=== PATIENT | female | born 2000 | race Caucasian/White ===

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

== ENCOUNTER 2020-05-27 15:12 | Emergency (ER) | payer OTHER ==
--- NOTE | 2020-05-27 16:15 | ED ---
General Adult HPI - General Chief complaint: Animal Bite Stated complaint: dog bite/face lac Time Seen by Provider: 05/27/20 16:02 Source: patient Mode of arrival: ambulatory Limitations: no limitations - History of Present Illness Initial comments: 19-year-old female presents to the emergency department with a laceration to the bridge of her nose from a dog bite approximately one hour prior to arrival. Bleeding controlled upon arrival; reports mild discomfort at the site of injury. Denies difficulty breathing through her nose or any other area of injury. Patient states the dog that bit her belongs to the mother of her boyfriend and is able to confirm that the dog's immunizations are up-to-date. Patient states she has unsure of when she last had a tetanus shot. Patient denies any headache, neck pain, back pain, chest pain, shortness of breath, dizziness, weakness, abdominal pain, nausea, vomiting, or difficulties with bowel movements or urination. - Related Data Home Medications Medication Instructions Recorded Confirmed Escitalopram Oxalate [Lexapro] 1 tab PO HS 08/09/16 11/09/16 Previous Rx's Medication Instructions Recorded Cephalexin [Keflex] 500 mg PO BID #14 cap 01/08/19 Phenazopyridine HCl [Pyridium] 100 mg PO TID #9 tab 01/08/19 Famotidine [Pepcid] 20 mg PO BID #40 tablet 02/09/19 Doxycycline [Vibramycin] 100 mg PO BID 1 Days #14 capsule 05/27/20 Allergies Allergy/AdvReac Type Severity Reaction Status Date / Time amoxicillin Allergy Rash/Hives Verified 05/27/20 15:33 Review of Systems ROS Statement: Those systems with pertinent positive or pertinent negative responses have been documented in the HPI. ROS Other: All systems not noted in ROS Statement are negative. Past Medical History Past Medical History: No Reported History Additional Past Medical History / Comment(s): MONO History of Any Multi-Drug Resistant Organisms: None Reported Past Surgical History: No Surgical Hx Reported Past Psychological History: Anxiety, Depression Smoking Status: Never smoker Past Alcohol Use History: None Reported Past Drug Use History: None Reported General Exam Limitations: no limitations (Well-developed, well-nourished female in no acute distress. Initial temperature 98.3F, pulse 80, respirations 18, blood pressure 132/83, pulse ox 99% on room air.) General appearance: alert, in no apparent distress Expanded Head exam: Present: laceration (4 cm stellate shaped laceration to the bridge of the nose) Respiratory exam: Present: normal lung sounds bilaterally. Absent: respiratory distress, wheezes, rales, rhonchi, stridor Cardiovascular Exam: Present: regular rate, normal rhythm, normal heart sounds. Absent: systolic murmur, diastolic murmur, rubs, gallop, clicks Neurological exam: Present: alert, oriented X3, CN II-XII intact Psychiatric exam: Present: normal affect, normal mood Skin exam: Present: warm, dry, intact, normal color. Absent: rash Course Vital Signs 05/27/20 05/27/20 15:29 16:30 Temperature 98.3 F 99.2 F Pulse Rate 80 76 Respiratory 18 19 Rate Blood Pressure 132/83 132/74 O2 Sat by Pulse 99 99 Oximetry Procedures - Laceration Laceration #1 Consent Obtained: verbal consent Indication: laceration Site: face Size (cm): 4 Description: stellate Depth: simple, single layer Anesthetic Used: lidocaine 1% Anesthesia Technique: local infiltration Amount (mls): 3 Pre-repair: wound explored, irrigated extensively Type of Sutures: nylon Size of Sutures: 6-0 Number of Sutures: 5 Technique: simple, interrupted Patient Tolerated Procedure: well Medical Decision Making - Medical Decision Making 19-year-old female presents to the emergency department for evaluation of 4 cm stellate laceration to the bridge of her nose, onset 1 hour prior to arrival. States injury was from a dog bite; animal is known to the patient was able to confirm that the dog's immunizations are up-to-date. Patient was unsure of the date of her last tetanus shot therefore one was administered while she was present in the department. Patient also received Motrin for mild discomfort. Discussed the need for thorough wound cleansing and antibiotic treatment due to the nature of the injury. Patient was agreeable and wound was anesthetized with 1% lidocaine, thoroughly irrigated, and five 6-0 nylon simple interrupted sutures were placed. Patient tolerated procedure very well. Bacitracin applied, wound care instructions reviewed at length. Patient instructed to have sutures removed in 3-5 days. Return parameters discussed in detail. Patient verbalizes understanding and agrees with this plan. Disposition Clinical Impression: Dog bite of nose Disposition: HOME SELF-CARE Instructions (If sedation given, give patient instructions): Animal Bite (ED) Additional Instructions: Keep clean and dry. Cleanse twice daily with warm water and antibacterial soap. Return to have stitches removed in 3-5 days. Follow up with her primary care physician for recheck in 1-2 days. Return to the department for any new, worsening, or concerning symptoms. Prescriptions: Doxycycline [Vibramycin] 100 mg PO BID 1 Days #14 capsule Is patient prescribed a controlled substance at d/c from ED?: No Referrals: Cara Monreal DO [Primary Care Provider] - 1-2 days Time of Disposition: 17:59
[2020-05-27] MEDS ORDERED: BACITRACIN OINT 1 EACH PACKET TOPICAL ONE (16:18)
[2020-05-27] MEDS ORDERED: IBUPROFEN 600 MG TAB PO STA (16:18)
[2020-05-27] MEDS ORDERED: LIDOCAINE 1% INJ 10MG/ML (20 ML MDV) SQ ONE (16:18)
[2020-05-27] MEDS ORDERED: DIPH,PERTUS(ACELL)TETVAC-LF 0.5 ML VIAL IM ONE (16:21)
[2020-05-27] MEDS ORDERED: DOXYCYCLINE 100 MG CAP PO STA (16:25)
[2020-05-27 18:22] VITALS: BP 124/82; PULSE 84; RESP 18; TEMP 98.7
== END 2020-05-27 18:02 | disposition home or self-care (01) ==
LOC: EC 15:12
DX: S01.21XA Laceration without foreign body of nose, initial encounter (principal); F41.9 Anxiety disorder, unspecified; F32.9 Major depressive disorder, single episode, unspecified; Z79.899 Other long term (current) drug therapy; Z88.0 Allergy status to penicillin; Z23 Encounter for immunization; W54.0XXA Bitten by dog, initial encounter
CPT/HCPCS: 90715; 99283; 12013; 90471; J2001

== ENCOUNTER 2022-04-01 16:33 | Emergency (ER) | payer OTHER ==
[2022-04-01 17:35] VITALS: BP 122/85; PULSE 88; RESP 16; TEMP 97.4
[2022-04-01] MEDS ORDERED: LIDOCAINE 1% INJ 10MG/ML (20 ML MDV) SQ ONE (18:15)
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
== END 2022-04-01 19:52 | disposition home or self-care (01) ==
LOC: EC 16:33
DX: S61.012A Laceration without foreign body of left thumb without damage to nail, initial encounter (principal); F41.9 Anxiety disorder, unspecified; F32.A Depression, unspecified; F12.90 Cannabis use, unspecified, uncomplicated; Z88.1 Allergy status to other antibiotic agents; W26.0XXA Contact with knife, initial encounter
CPT/HCPCS: 99283; 12002; J2001; 12001; 96374

== ENCOUNTER 2023-06-28 14:08 | Inpatient (IN) | payer OTHER ==
[2023-06-28 16:31] LABS: Basophils % (A) 0 %; Eosinophils # (A) 0.1 k/uL (0-0.7); Eosinophils % (A) 0 %; HCT 38.6 % (34.0-46.0); HGB 13.4 gm/dL (11.4-16.0); Lymphocytes # (A) 1.4 k/uL (1.0-4.8); Lymphocytes % (A) 9 %; MCH 27.6 pg (25.0-35.0); MCHC 34.8 g/dL (31.0-37.0); MCV 79.3 fL (80.0-100.0); Mean Platelet Volume 8.8; Monocytes # (A) 0.8 k/uL (0-1.0); Monocytes % (A) 5 %; Neutrophils # (A) 12.7 k/uL (1.3-7.7); Neutrophils % (A) 84 %; Platelet Count 144 k/uL (150-450); RBC 4.86 m/uL (3.80-5.40); RDW 13.8 % (11.5-15.5); WBC 15.1 k/uL (3.8-10.6)
[2023-06-28 16:49] LABS: Appearance,Urine Slightly Cloudy (Clear); Bacteria,Urine Moderate /hpf; Bilirubin,Urine Negative (Negative); Blood,Urine Moderate (Negative); Color,Urine Light Yellow; Glucose,Urine (UA) Negative (Negative); Ketones,Urine Negative (Negative); Leukocyte Esterase,Urine Negative (Negative); Nitrite,Urine Negative (Negative); Protein,Urine Negative (Negative); RBC,Urine <1 /hpf (0-5); Squamous Epithelial Cell,Urine <1 /hpf (0-4); Urobilinogen,Urine <2.0 mg/dL (<2.0); WBC,Urine 2 /hpf (0-5)
[2023-06-28 16:52] LABS: ALT 14 U/L (4-34); AST 21 U/L (14-36); African American GFR (CKD) >90 (>60 ml/min/1.73 sqM); Blood Urea Nitrogen 8 mg/dL (7-17); LDH 187 U/L (120-246); Non-African American GFR(CKD) >90 (>60 ml/min/1.73 sqM)
[2023-06-28 16:53] LABS: Creatinine,Urine Random 33.1 mg/dL; Protein/Creatinine Ratio,Urine 0.363
[2023-06-28] MEDS ORDERED: LIDOCAINE 0.5% (PF) 5 MG/ML (50 ML SDV) SQ PRN (17:10)
[2023-06-28] MEDS ORDERED: miSOPROStoL 200 MCG TAB PO PRN (17:10)
[2023-06-28] MEDS ORDERED: CARBOPROST TROMETHAMINE 250 MCG/ML 1 ML AMP IM PRN (17:10)
[2023-06-28] MEDS ORDERED: TERBUTALINE 1 MG/ML VIAL SQ PRN (17:10)
[2023-06-28] MEDS ORDERED: OXYTOCIN 10 UNIT/ML 1 ML VIAL IM PRN (17:10)
[2023-06-28] MEDS ORDERED: METHYLERGONOVINE 0.2 MG/ML 1 ML AMP IM PRN (17:10)
[2023-06-28] MEDS ORDERED: TRANEXAMIC 1,000 MG/100ML-NACL 1,000 MG in EMPTY BAG 1 BAG IV PRN (17:10)
[2023-06-28] MEDS ORDERED: OXYTOCIN 30 UNITS/500 ML NS 30 UNIT in SALINE 1 500ML.BAG IV SCH (17:15)
[2023-06-28] MEDS ORDERED: LACTATED RINGERS 1,000 ML IV SCH (17:15)
--- NOTE | 2023-06-28 21:00 | P.HPOB ---
History of Present Illness H&P Date: 06/28/23 Chief Complaint: Contractions Ms. Garrison is a 22 year old at 41 weeks and 1 day with EDC of 06/20/2023 (by LMP consistent with an 8 week US) who presents to labor and delivery with regular, painful uterine contractions. The has been complicated by mild bilateral ventriculomegaly found on the anatomy ultrasound. The patient had an ultrasound and consultation with Maternal Medicine who reassured the patient and discussed the good prognosis. The fetus measured in the 31%ile at 34 weeks. Obstetric history: 1 VTP work-up: blood type B positive, antibody screen negative, rubella immune, VDRL non-reactive, HBsAg negative, HIV negative, HCV Ab negative, gonorrhea negative, chlamydia negative, 1 hour GTT within normal limits, GBS negative. Patient declined TDap and flu shot. Past Medical History Past Medical History: No Reported History Additional Past Medical History / Comment(s): MONO History of Any Multi-Drug Resistant Organisms: None Reported Past Surgical History: No Surgical Hx Reported Past Anesthesia/Blood Transfusion Reactions: No Reported Reaction Past Psychological History: Anxiety, Depression Smoking Status: Never smoker Past Alcohol Use History: None Reported Past Drug Use History: Marijuana - Past Family History Mother Family Medical History: No Reported History Medications and Allergies Home Medications Medication Instructions Recorded Confirmed Type Vit No.179/Iron/Folic 1 each PO DAILY 06/28/23 06/28/23 History [ Tablet] Allergies Allergy/AdvReac Type Severity Reaction Status Date / Time amoxicillin Allergy Rash/Hives Verified 06/28/23 14:35 Exam Vital Signs Temp Pulse Resp BP Pulse Ox 06/28/23 17:30 97.1 F L 80 16 141/88 98 Intake and Output 06/28/23 06/28/23 06/28/23 06:59 14:59 22:59 Other: Weight 86.183 kg 86.183 kg Focused physical exam is performed. This is a healthy-appearing in no apparent distress. Breathing is non-labored. Abdomen is gravid and non-tender. Cervical exam is 5 cm, 90 effacement, -3 station. Extremeties non-tender and non-edematous. heart tones are Category I and tocometer is graphing contractions every 2-5 minutes. Results Result Diagrams: 06/28/23 16:17 06/28/23 16:17 Abnormal Lab Results - Last 24 Hours (Table) 06/28/23 06/28/23 06/28/23 Range/Units 16:17 16:17 16:20 WBC 15.1 H (3.8-10.6) k/uL MCV 79.3 L (80.0-100.0) fL Plt Count 144 L (150-450) k/uL Neutrophils # 12.7 H (1.3-7.7) k/uL Creatinine 0.50 L (0.52-1.04) mg/dL Urine Appearance Slightly Cloudy H (Clear) Urine Blood Moderate H (Negative) Urine Bacteria Moderate H (None) /hpf Assessment and Plan Assessment: 22 year old at 41 weeks and 1 day presenting in labor Plan: Admit, clear liquid diet, continuous EFM and tocometer, close monitoring of patient, expectant management at this time. Time with Patient: Less than 30
[2023-06-29] MEDS ORDERED: KETOROLAC 15 MG/ML 1 ML VIAL IVP STA (03:14)
--- NOTE | 2023-06-29 03:30 | P.PROBDLV ---
Vaginal Delivery Note - . Vaginal Delivery Note: DATE OF SERVICE: 06/29/2023 PROCEDURE: Normal Vaginal Delivery ATTENDING: Dr. Kandi Neff MD ESTIMATED BLOOD LOSS: 400 mL FINDINGS: VMI, Apgars 9/9. Weight 7 pounds and 3 ounces (3270 grams) PROCEDURE: Ms. Garrison is a 22 year old at 41 weeks and 2 days presenting to labor and delivery in labor. The has been complicated by bilateral vetrinculomegaly that has been stable and mild. For further details, please review the admitting H&P. AROM was performed at 121 for clear fluid. The patient was completely dilated at this time. The patient pushed effectively and a viable male infant was delivered at 246 without difficulty. The infant was placed on the maternal abdomen and bulb suctioned. The infant was noted to be spontaneously crying. Cord was clamped and cut after a 30-second delay. The infant was handed off to the pediatric team. Placenta was delivered whole with gentle cord traction at 254. Oxytocin was started to facilitate uterine tone. Uterine fundus was found to be firm and below the umbilicus upon fundal massage. Thorough examination of the cervix, vagina, periurethral area, and perineum revealed a second degree perineal laceration that was infiltrated with Lidocaine and repaired with 2-0 Vicryl. A right periurethral laceration was also repaired with 3-0 Vicryl.The patient is stable and allowed to begin the bonding process.
[2023-06-29] MEDS ORDERED: diphenhydrAMINE 25 MG CAP PO PRN (03:31)
[2023-06-29] MEDS ORDERED: diphenhydrAMINE 50 MG CAP PO PRN (03:31)
[2023-06-29] MEDS ORDERED: diphenhydrAMINE 50 MG/ML 1 ML VIAL IVP PRN ×2 (03:31)
[2023-06-29] MEDS ORDERED: SIMETHICONE 80 MG CHEWABLE PO PRN (03:31)
[2023-06-29] MEDS ORDERED: ZOLPIDEM 5 MG TAB PO PRN (03:31)
[2023-06-29] MEDS ORDERED: ACETAMINOPHEN TAB 325 MG TAB PO PRN (03:31)
[2023-06-29] MEDS ORDERED: HYDROCORTISONE 2.5% RECTAL CREAM 30 GM TUBE RECTAL PRN (03:31)
[2023-06-29] MEDS ORDERED: BENZOCAINE/MENTHOL SPRAY 1 GM/SPRAY AEROSOL TOPICAL PRN (03:31)
[2023-06-29] MEDS ORDERED: LANOLIN CREAM 5 GM TUBE TOPICAL PRN (03:31)
[2023-06-29] MEDS: SENNOSIDES-DOCUSATE SODIUM 1 EACH TAB PO SCH ×2 (09:42→20:50)
[2023-06-29] MEDS: IBUPROFEN 600 MG TAB PO PRN ×2 (09:42→20:50)
[2023-06-29 13:36] VITALS: RESP 16
[2023-06-29 22:13] VITALS: TEMP 98.1
[2023-06-30 07:39] LABS: Basophils % (A) 0 %; Eosinophils # (A) 0.1 k/uL (0-0.7); Eosinophils % (A) 1 %; HCT 31.7 % (34.0-46.0); HGB 10.5 gm/dL (11.4-16.0); Lymphocytes # (A) 2.1 k/uL (1.0-4.8); Lymphocytes % (A) 16 %; MCH 26.5 pg (25.0-35.0); MCHC 33.1 g/dL (31.0-37.0); MCV 79.9 fL (80.0-100.0); Mean Platelet Volume 9.1; Monocytes # (A) 0.7 k/uL (0-1.0); Monocytes % (A) 6 %; Neutrophils % (A) 75 %; Platelet Count 141 k/uL (150-450); RBC 3.97 m/uL (3.80-5.40); WBC 13.4 k/uL (3.8-10.6)
[2023-06-30] MEDS: IBUPROFEN 600 MG TAB PO PRN (07:45)
--- NOTE | 2023-06-30 09:02 | P.DS ---
Providers Date of admission: 06/28/23 16:57 Expected date of discharge: 06/30/23 Attending physician: Kandi Neff MD Primary care physician: Stated None Hospital Course: Ms. Garrison is a 22 year old now PPD#1 s/p normal spontaneous vaginal delivery. She presented to labor and delivery in labor and was expectantly managed until she had a normal vaginal delivery with a second degree laceration. She has had an uneventful post-operative course. The patient is doing well this morning and had no acute events overnight. She has no complaints this morning. She reports minimal lochia, passing flatus, voiding without diff iculty, ambulating, and eating/drinking without nausea or vomiting. Infant doing well at bedside, circumcision declined. She denies chest pain, shortness of breathing, fevers, or chills overnight. She denies pain or swelling in the legs. restrictions are reviewed with the patient including pelvic rest for 6 weeks. The patient is encouraged to call the office if she experiences any heavy bleeding, foul-smelling discharge, breast complaints, or any if she has any other concerns. She will follow up in the office in 6 weeks for exam. She will take home supply of Tylenol and requests refill for Motrin. All questions are answered. Plan - Discharge Summary Discharge Rx Participant: Yes New Discharge Prescriptions: New Ibuprofen [Motrin] 600 mg PO Q6HR PRN #30 tab PRN Reason: Mild Pain (Scale 1 To 3) No Action Vit No.179/Iron/Folic [ Tablet] 1 each PO DAILY Discharge Medication List Vit No.179/Iron/Folic [ Tablet] 1 each PO DAILY 06/28/23 [History] Ibuprofen [Motrin] 600 mg PO Q6HR PRN #30 tab 06/30/23 [Rx] Follow up Appointment(s)/Referral(s): Kandi Neff MD [STAFF PHYSICIAN] - 6 Weeks Activity/Diet/Wound Care/Special Instructions: Instructions 1. Do not begin any exercise program for 3 weeks. 2. Do not resume sexual relations for 6 weeks or longer if uncomfortable. 3. You may take tub baths or showers at any time. 4. You may use tampons if desired after 6 weeks. 5. Keep any areas repaired with stitches clean and dry. 6. If you are not nursing, wear a good fitting, supportive bra during the day and limit fluid intake for at least 1 week to prevent breast engorgement. 7. Call the office, , within the next week to make appointment for your 6 week checkup if it has not already been made. 8. Report any of the following occurrences to the doctor promptly: a. Heavy, excessive bleeding b. Chills, fever c. Burning or frequency of urination d. Pain or redness and breasts if nursing e. Increasing pain or swelling of vulva (stitches). In addition to the above instructions, the following additional should be followed: 1. No heavy lifting or straining (exercising) until after 6 week checkup. 2. Keep abdominal incision clean and dry: You may wear a dressing if more comfortable. 3. Make office appointment for 2 weeks after delivery date. Discharge Disposition: HOME SELF-CARE
[2023-06-30 10:39] VITALS: BP 106/71; PULSE 86
[2023-06-30] MEDS: SENNOSIDES-DOCUSATE SODIUM 1 EACH TAB PO SCH (12:45)
== END 2023-06-30 13:20 | disposition home or self-care (01) | DRG 560 ==
LOC: FBPOP 14:08 → 4FBP 16:57
PROVIDERS: ADMIT Obstetrics & Gynecology; ATTEND Obstetrics & Gynecology
PROC: 10907ZC Drainage of Amniotic Fluid, Therapeutic from Products of Conception, Via Natural or Artificial Opening (ICD-10-PCS; principal; 2023-06-29)
PROC: 10E0XZZ Delivery of Products of Conception, External Approach (ICD-10-PCS; 2023-06-29)
PROC: 3E033VJ Introduction of Other Hormone into Peripheral Vein, Percutaneous Approach (ICD-10-PCS; 2023-06-29)
PROC: 0UQMXZZ Repair Vulva, External Approach (ICD-10-PCS; 2023-06-29)
PROC: 0KQM0ZZ Repair Perineum Muscle, Open Approach (ICD-10-PCS; 2023-06-29)
DX: O48.0 Post-term pregnancy (principal); O70.1 Second degree perineal laceration during delivery; O71.82 Other specified trauma to perineum and vulva; F32.A Depression, unspecified; F41.9 Anxiety disorder, unspecified; Z3A.41 41 weeks gestation of pregnancy; Z37.0 Single live birth
CPT/HCPCS: 59025; 81001; 82565; 82570; 83615; 84156; 84450; 84460; 84520; 84550; 85025; 86850; 86900; 86901; 99213

== ENCOUNTER 2023-07-03 23:27 | Emergency (ER) | payer OTHER ==
[2023-07-03 23:38] VITALS: TEMP 98.1
[2023-07-04 00:27] LABS: Basophils % (A) 0 %; Eosinophils # (A) 0.3 k/uL (0-0.7); Eosinophils % (A) 4 %; HCT 33.4 % (34.0-46.0); Lymphocytes # (A) 1.8 k/uL (1.0-4.8); Lymphocytes % (A) 20 %; MCH 26.4 pg (25.0-35.0); MCHC 32.9 g/dL (31.0-37.0); MCV 80.2 fL (80.0-100.0); Mean Platelet Volume 7.5; Monocytes # (A) 0.6 k/uL (0-1.0); Monocytes % (A) 6 %; Neutrophils # (A) 6.4 k/uL (1.3-7.7); Neutrophils % (A) 68 %; Platelet Count 181 k/uL (150-450); RBC 4.16 m/uL (3.80-5.40); RDW 14.1 % (11.5-15.5); WBC 9.4 k/uL (3.8-10.6)
[2023-07-04 00:30] LABS: ALT 26 U/L (4-34); AST 28 U/L (14-36); African American GFR (CKD) >90 (>60 ml/min/1.73 sqM); Albumin 3.7 g/dL (3.5-5.0); Alkaline Phosphatase 126 U/L (38-126); Anion Gap 12 mmol/L; Blood Urea Nitrogen 8 mg/dL (7-17); Calcium 8.9 mg/dL (8.4-10.2); Carbon Dioxide 21 mmol/L (22-30); Chloride 104 mmol/L (98-107); Glucose 78 mg/dL (74-99); LDH 212 U/L (120-246); Non-African American GFR(CKD) >90 (>60 ml/min/1.73 sqM); Potassium 3.9 mmol/L (3.5-5.1); Sodium 137 mmol/L (137-145); Total Bilirubin 0.8 mg/dL (0.2-1.3); Total Protein 6.7 g/dL (6.3-8.2)
[2023-07-04 00:40] VITALS: RESP 18
[2023-07-04 00:41] LABS: Appearance,Urine Cloudy (Clear); Bacteria,Urine Few /hpf; Bilirubin,Urine Negative (Negative); Blood,Urine Large (Negative); Color,Urine Light Yellow; Glucose,Urine (UA) Negative (Negative); Ketones,Urine Negative (Negative); Leukocyte Esterase,Urine Large (Negative); Mucus,Urine Rare /hpf; Nitrite,Urine Negative (Negative); PH, Urine 6.5 (5.0-8.0); Protein,Urine Trace (Negative); RBC,Urine >182 /hpf (0-5); Specific Gravity,Urine 1.011 (1.001-1.035); Squamous Epithelial Cell,Urine 7 /hpf (0-4); Urobilinogen,Urine <2.0 mg/dL (<2.0); WBC,Urine >182 /hpf (0-5)
--- NOTE | 2023-07-04 01:24 | US ---
EXAM: US Duplex Right Lower Extremity Veins CLINICAL HISTORY: ITS.REASON US Reason: leg swelling TECHNIQUE: Real-time duplex ultrasound scan of the right lower extremity veins integrating B-mode two-dimensional vascular structure, Doppler spectral analysis, color flow Doppler imaging and compression. COMPARISON: No relevant prior studies available. FINDINGS: Deep veins: Unremarkable. No DVT in the visualized common femoral, femoral, proximal deep femoral or popliteal veins. The veins demonstrate normal color flow, are normally compressible, with normal phasic flow and/or augmentation response. Superficial veins: Unremarkable. No thrombus in the visualized great saphenous vein. Soft tissues: No acute findings. No popliteal cyst. IMPRESSION: Normal right lower extremity duplex venous ultrasound.
[2023-07-04] MEDS ORDERED: KETOROLAC 15 MG/ML 1 ML VIAL IVP STA (01:46)
--- NOTE | 2023-07-04 01:49 | ED ---
Extremity Problem HPI - General Chief complaint: Extremity Problem,Nontraumatic Stated complaint: right lower extremity juarez Source: patient Mode of arrival: ambulatory Limitations: no limitations - History of Present Illness Initial comments: 22-year-old female who is 5 days presents emergency room with right lower extremity swelling and mild headache. States she has been taking Motrin and Tylenol at home because of her recent delivery. States that she continues to have a headache even though she is taking these medications. She did note that she started having some swelling to her right lower extremity today. Because of these constellation of symptoms she presents and is found to have mildly elevated blood pressure. She denies having [place] or preeclampsia with her . She did vaginal delivery at 41 weeks and 2 days. She denies any acute vaginal bleeding. No chest pain or shortness of breath. No visual changes. No upper quadrant pain. No other alleviating, precipitating factors - Related Data Home Medications Medication Instructions Recorded Confirmed Vit No.179/Iron/Folic 1 each PO DAILY 06/28/23 06/28/23 [ Tablet] Previous Rx's Medication Instructions Recorded Ibuprofen [Motrin] 600 mg PO Q6HR PRN #30 tab 06/30/23 Allergies Allergy/AdvReac Type Severity Reaction Status Date / Time amoxicillin Allergy Rash/Hives Verified 07/03/23 23:35 Review of Systems ROS Statement: Those systems with pertinent positive or pertinent negative responses have been documented in the HPI. ROS Other: All systems not noted in ROS Statement are negative. Past Medical History Past Medical History: No Reported History Additional Past Medical History / Comment(s): MONO History of Any Multi-Drug Resistant Organisms: None Reported Past Surgical History: No Surgical Hx Reported Past Anesthesia/Blood Transfusion Reactions: No Reported Reaction Past Psychological History: Anxiety, Depression Smoking Status: Never smoker Past Alcohol Use History: None Reported Past Drug Use History: Marijuana - Past Family History Mother Family Medical History: No Reported History General Exam Limitations: no limitations General appearance: alert, in no apparent distress Head exam: Present: atraumatic, normocephalic, normal inspection Eye exam: Present: normal appearance, PERRL, EOMI. Absent: scleral icterus, conjunctival injection, periorbital swelling ENT exam: Present: normal exam, mucous membranes moist Neck exam: Present: normal inspection. Absent: tenderness, meningismus, lymphadenopathy Respiratory exam: Present: normal lung sounds bilaterally. Absent: respiratory distress, wheezes, rales, rhonchi, stridor Cardiovascular Exam: Present: regular rate, normal rhythm, normal heart sounds. Absent: systolic murmur, diastolic murmur, rubs, gallop, clicks GI/Abdominal exam: Present: soft, normal bowel sounds. Absent: distended, tenderness, guarding, rebound, rigid Extremities exam: Present: normal inspection, full ROM, normal capillary refill, pedal edema (Mild right-sided). Absent: tenderness, joint swelling, calf tenderness Back exam: Present: normal inspection Neurological exam: Present: alert, oriented X3, CN II-XII intact Psychiatric exam: Present: normal affect, normal mood Skin exam: Present: warm, dry, intact, normal color. Absent: rash Course Vital Signs 07/03/23 07/04/23 07/04/23 23:35 00:04 00:10 Temperature 98.1 F Pulse Rate 92 Respiratory 16 18 Rate Blood Pressure 145/103 132/93 132/93 O2 Sat by Pulse 99 97 Oximetry 07/04/23 07/04/23 07/04/23 00:15 00:30 00:45 Temperature Pulse Rate Respiratory Rate Blood Pressure 132/93 127/94 124/96 O2 Sat by Pulse 98 98 97 Oximetry 07/04/23 07/04/23 07/04/23 01:00 01:15 01:30 Temperature Pulse Rate 82 Respiratory Rate Blood Pressure 113/84 121/86 118/82 O2 Sat by Pulse 97 97 97 Oximetry 07/04/23 01:45 Temperature Pulse Rate 80 Respiratory Rate Blood Pressure 103/81 O2 Sat by Pulse 97 Oximetry Medical Decision Making - Medical Decision Making Was pt. sent in by a medical professional or institution (, PA, DIRECTOR OF EMPLOYER SERVICES, urgent care, hospital, or longterm...) When possible be specific @ -No Did you speak to anyone other than the patient for history (EMS, parent, family, police, friend...)? What history was obtained from this source @ -No Did you review nursing and triage notes (agree or disagree)? Why? @ -I reviewed and agree with nursing and triage notes Were old charts reviewed (outside hosp., previous admission, EMS record, old EKG, old radiological studies, urgent care reports/EKG's, longterm records)? Report findings @ -No old charts were reviewed Differential Diagnosis (chest pain, altered mental status, abdominal pain women, abdominal pain men, vaginal bleeding, weakness, fever, dyspnea, syncope, headache, dizziness, GI bleed, back pain, seizure, CVA, palpatations, mental health, musculoskeletal)? @ -Eclampsia, preeclampsia, DVT, peripheral edema EKG interpreted by me (3pts min.). @ -Not done X-rays interpreted by me (1pt min.). @ -None done CT interpreted by me (1pt min.). @ -None done U/S interpreted by me (1pt. min.). @ -yes and demonstrates no DVT What testing was considered but not performed or refused? (CT, X-rays, U/S, labs)? Why? @ -None What meds were considered but not given or refused? Why? @ -None Did you discuss the management of the patient with other professionals (professionals i.e. , PA, DIRECTOR OF EMPLOYER SERVICES, lab, RT, psych nurse, foster care social worker, inspector circuitry negative, teacher, tactical/mobile watch officer, piano case and bench assembler)? Give summary @ -Spoke with on-call OB who states that the patient should follow-up this week for blood pressure recheck Was smoking cessation discussed for >3mins.? @ -No Was critical care preformed (if so, how long)? @ -No Were there social determinants of health that impacted care today? How? ( Homelessness, low income, unemployed, alcoholism, drug addiction, transportation, low edu. Level, literacy, decrease access to med. care, alf, rehab)? @ -No Was there de-escalation of care discussed even if they declined (Discuss DNR or withdrawal of care, Hospice)? DNR status @ -No What co-morbidities impacted this encounter? (DM, HTN, Smoking, COPD, CAD, Cancer, CVA, ARF, Chemo, Hep., AIDS, mental health diagnosis, sleep apnea, morbid obesity)? @ -None Was patient admitted / discharged? Hospital course, mention meds given and route, prescriptions, significant lab abnormalities, going to OR and other pertinent info. @ -Upon arrival the patient was placed into room 3. She does have elevated blood pressure upon arrival. We do check the patient's blood pressure every 15 minutes. Blood pressure does normalize. Laboratory studies were conducted. Ultrasound was performed of the right lower extremity. No DVT. Lab studies are not consistent with preeclampsia. I did call and speak with the on-call OB. The patient will follow up in their office next week for blood pressure recheck. Return for any new or worsening symptoms. Patient agreeable discharged in stable condition Undiagnosed new problem with uncertain prognosis? @ -No Drug Therapy requiring intensive monitoring for toxicity (Heparin, Nitro, Insulin, Cardizem)? @ -No Were any procedures done? @ -No Diagnosis/symptom? @ -Acute cephalgia, acute right lower extremity swelling, rule out DVT, evaluation for preeclampsia Acute, or Chronic, or Acute on Chronic? @ -Acute Uncomplicated (without systemic symptoms) or Complicated (systemic symptoms)? @ -Complicated Side effects of treatment? @ -No Exacerbation, Progression, or Severe Exacerbation? @ -No Poses a threat to life or bodily function? How? (Chest pain, [place], [place], pneumonia, PE, COPD, DKA, ARF, appy, cholecystitis, CVA, Diverticulitis, Homicidal, Suicidal, threat to staff... and all critical care pts) @ -No - Lab Data Result diagrams: 07/04/23 00:06 07/04/23 00:06 Lab Results 07/04/23 07/04/23 07/04/23 Range/Units 00:06 00:06 00:06 WBC 9.4 (3.8-10.6) k/uL RBC 4.16 (3.80-5.40) m/uL Hgb 11.0 L (11.4-16.0) gm/dL Hct 33.4 L (34.0-46.0) % MCV 80.2 (80.0-100.0) fL MCH 26.4 (25.0-35.0) pg MCHC 32.9 (31.0-37.0) g/dL RDW 14.1 (11.5-15.5) % Plt Count 181 (150-450) k/uL MPV 7.5 Neutrophils % 68 % Lymphocytes % 20 % Monocytes % 6 % Eosinophils % 4 % Basophils % 0 % Neutrophils # 6.4 (1.3-7.7) k/uL Lymphocytes # 1.8 (1.0-4.8) k/uL Monocytes # 0.6 (0-1.0) k/uL Eosinophils # 0.3 (0-0.7) k/uL Basophils # 0.0 (0-0.2) k/uL Sodium 137 (137-145) mmol/L Potassium 3.9 (3.5-5.1) mmol/L Chloride 104 (98-107) mmol/L Carbon Dioxide 21 L (22-30) mmol/L Anion Gap 12 mmol/L BUN 8 (7-17) mg/dL Creatinine 0.48 L (0.52-1.04) mg/dL Est GFR (CKD-EPI)AfAm >90 (>60 ml/min/1.73 sqM) Est GFR (CKD-EPI)NonAf >90 (>60 ml/min/1.73 sqM) Glucose 78 (74-99) mg/dL Uric Acid 5.0 (3.7-7.4) mg/dL Calcium 8.9 (8.4-10.2) mg/dL Total Bilirubin 0.8 (0.2-1.3) mg/dL AST 28 (14-36) U/L ALT 26 (4-34) U/L Alkaline Phosphatase 126 (38-126) U/L Lactate Dehydrogenase 212 (120-246) U/L Total Protein 6.7 (6.3-8.2) g/dL Albumin 3.7 (3.5-5.0) g/dL Urine Color Light Yellow Urine Appearance Cloudy H (Clear) Urine pH 6.5 (5.0-8.0) Ur Specific [place] 1.011 (1.001-1.035) Urine Protein Trace H (Negative) Urine Glucose (UA) Negative (Negative) Urine Ketones Negative (Negative) Urine Blood Large H (Negative) Urine Nitrite Negative (Negative) Urine Bilirubin Negative (Negative) Urine Urobilinogen <2.0 (<2.0) mg/dL Ur Leukocyte Esterase Large H (Negative) Urine RBC >182 H (0-5) /hpf Urine WBC >182 H (0-5) /hpf Ur Squamous Epith Cells 7 H (0-4) /hpf Urine Bacteria Few H (None) /hpf Urine Mucus Rare H (None) /hpf Disposition Clinical Impression: Headache, Leg swelling Disposition: HOME SELF-CARE Condition: Stable Instructions (If sedation given, give patient instructions): Leg Edema (ED) Additional Instructions: Please monitor your swelling. Call the office on Wednesday to make an appointment for a blood pressure recheck in office. If you have worsening symptoms, return to the emergency department Is patient prescribed a controlled substance at d/c from ED?: No Referrals: Cara Monreal DO [Primary Care Provider] - 1-2 days Kandi Neff MD [Family Provider] - 1-2 days Time of Disposition: 01:48
[2023-07-04 02:08] VITALS: BP 103/81; PULSE 80
== END 2023-07-04 02:14 | disposition home or self-care (01) ==
LOC: EC 23:27
DX: O90.89 Other complications of the puerperium, not elsewhere classified (principal); M79.89 Other specified soft tissue disorders; R51.9 Headache, unspecified; O99.325 Drug use complicating the puerperium; F12.90 Cannabis use, unspecified, uncomplicated; Z88.0 Allergy status to penicillin
CPT/HCPCS: 36415; 80053; 83615; 84550; 85025; 81001; 93971; 99284; 96374; J1885

== ENCOUNTER 2024-08-11 12:40 | Outpatient (CLI) | payer OTHER ==
[2024-08-11 13:39] LABS: Appearance,Urine Cloudy (Clear); Bacteria,Urine Many /hpf; Bilirubin,Urine Negative (Negative); Blood,Urine Negative (Negative); Color,Urine Yellow; Glucose,Urine (UA) Negative (Negative); Ketones,Urine Negative (Negative); Leukocyte Esterase,Urine Moderate (Negative); Mucus,Urine Moderate /hpf; Nitrite,Urine Negative (Negative); PH, Urine 6.5 (5.0-8.0); Protein,Urine Trace (Negative); RBC,Urine 1 /hpf (0-5); Specific Gravity,Urine 1.026 (1.001-1.035); Squamous Epithelial Cell,Urine 3 /hpf (0-4); Urobilinogen,Urine <2.0 mg/dL (<2.0); WBC,Urine 8 /hpf (0-5)
[2024-08-11 14:58] VITALS: BP 117/68; PULSE 120; RESP 16; TEMP 98.8
--- NOTE | 2024-09-15 23:40 | P.MSEPDOC ---
Presenting Problems - Arrival Data Date of Arrival on Unit: 08/11/24 Time of Arrival on Unit: 12:50 Mode of Transport: Ambulatory - Complaint OB-Reason for Admission/Chief Complaint: Headache, Signs/Symptoms UTI Comment: just felt achy"" and increasing head pressure between temples today. took tylenol earlier still don't feel well. Medical History - Information : 3 Para: 1 Term: 1 : 0 Abortions: Spontaneous or Elective: 0 Number of Living Children: 1 - Gestational Age Gestational Age by LARISA (wks/days): 35 Weeks and 4 Days Review of Systems - Review of Systems Constitutional: No problems Breast: No problems ENT: No problems Cardiovascular: No problems Respiratory: No problems Gastrointestinal: No problems Genitourinary: Urgency, Increased frequency Musculoskeletal: No problems Neurological: No problems Skin: No problems Comment: states very sweaty when got up this morning. Vital Signs - Temperature Temperature: 98.8 F Temperature Source: Temporal Artery Scan - Pulse Radial Pulse Rate: 120 Pulse Assessment Method: Auscultation - Respirations Respiratory Rate: 16 Oxygen Delivery Method: Room Air O2 Sat by Pulse Oximetry: 99 - Blood Pressure Right Arm Blood Pressure: 117/68 Blood Pressure Mean: 84 Blood Pressure Source: Automatic Cuff Medical Screen Scoring - Cervical Exam Membranes: Intact - Assessment - Baby A Baseline FHR: 150 Heart Rate - NICHD Category: Category I (Normal) NST: Reactive Physician Notification - Physician Notified Physician Notified Date: 08/11/24 Physician Notified Time: 13:30 Physician: Neo Espinosa Order Received: Yes - Notification Comment Comment: u/a, reactuve nst. if ok may return home to rest . foolow up with dr if needed. Maternal Triage Index - Maternal Triage Index Presenting for scheduled procedure w/no complaint: No - Stat/Priority 1 Stat Priority 1: No - Urgent/Priority 2 Urgent Priority 2: No - Prompt/Priority 3 Prompt Priority 3: No - Non-Urgent/Priority 4 Non-Urgent Priority 4: No - Scheduled/Requesting Priority 5 Scheduled/Requesting Priority 5: Yes Criteria Met for Priority 5: not feeling well. headache, ?UTI, muscle aches, and nauseated Disposition - Disposition OB Disposition: Physician follow up in office, Discharge to home, Written follow up instructions reviewed Discharge Date: 08/11/24 Discharge Time: 14:30 I agree with the RN Medical Screening Exam: Yes Physician's MSE Comment: I have neither seen nor examined the patient. Case reviewed; plan agreed upon as documented in EMR&OBIX.: Yes Diagnosis: RELATED CONDITIONS, UNSPECIFIED, THIRD TRIMESTER
== END 2024-08-11 14:30 | disposition home or self-care (01) ==
LOC: FBPOP 12:40
PROVIDERS: ATTEND Obstetrics & Gynecology
DX: O26.93 Pregnancy related conditions, unspecified, third trimester (principal); Z3A.35 35 weeks gestation of pregnancy; Z88.0 Allergy status to penicillin
CPT/HCPCS: 59025; 81001; G0463; 99213

== ENCOUNTER 2024-08-11 14:44 | Emergency (ER) | payer OTHER ==
[2024-08-11] MEDS: SODIUM CHLORIDE 0.9% 2,000 ML IV STA (16:46)
[2024-08-11] MEDS: ONDANSETRON 4 MG/2 ML VIAL IVP STA (16:46)
[2024-08-11] MEDS: ACETAMINOPHEN TAB 500 MG TAB PO STA (16:47)
[2024-08-11 17:04] LABS: Basophils % (A) 0 %; Eosinophils % (A) 0 %; HCT 35.3 % (34.0-46.0); HGB 11.5 gm/dL (11.4-16.0); Hypochromasia Slight; Lymphocytes # (A) 0.2 k/uL (1.0-4.8); Lymphocytes % (A) 2 %; MCH 25.2 pg (25.0-35.0); MCHC 32.5 g/dL (31.0-37.0); MCV 77.5 fL (80.0-100.0); Mean Platelet Volume 8.5; Monocytes # (A) 0.6 k/uL (0-1.0); Monocytes % (A) 5 %; Neutrophils # (A) 9.5 k/uL (1.3-7.7); Neutrophils % (A) 91 %; Platelet Count 125 k/uL (150-450); RBC 4.55 m/uL (3.80-5.40); RDW 13.6 % (11.5-15.5); WBC 10.3 k/uL (3.8-10.6)
[2024-08-11 17:08] LABS: Appearance,Urine Cloudy (Clear); Bacteria,Urine Moderate /hpf; Bilirubin,Urine Negative (Negative); Blood,Urine Negative (Negative); Color,Urine Light Yellow; Glucose,Urine (UA) Negative (Negative); Ketones,Urine 2+ (Negative); Leukocyte Esterase,Urine Negative (Negative); Mucus,Urine Moderate /hpf; Nitrite,Urine Negative (Negative); PH, Urine 6.5 (5.0-8.0); Protein,Urine Negative (Negative); RBC,Urine <1 /hpf (0-5); Specific Gravity,Urine 1.012 (1.001-1.035); Squamous Epithelial Cell,Urine 1 /hpf (0-4); Urobilinogen,Urine <2.0 mg/dL (<2.0); WBC,Urine 1 /hpf (0-5)
[2024-08-11 17:14] LABS: ALT 34 U/L (4-34); AST 40 U/L (14-36); African American GFR (CKD) >90 (>60 ml/min/1.73 sqM); Alkaline Phosphatase 142 U/L (38-126); Anion Gap 11 mmol/L; Blood Urea Nitrogen 3 mg/dL (7-17); Calcium 8.8 mg/dL (8.4-10.2); Carbon Dioxide 20 mmol/L (22-30); Chloride 103 mmol/L (98-107); Glucose 73 mg/dL (74-99); Non-African American GFR(CKD) >90 (>60 ml/min/1.73 sqM); Potassium 3.6 mmol/L (3.5-5.1); Sodium 134 mmol/L (137-145); Total Bilirubin 1.2 mg/dL (0.2-1.3)
[2024-08-11 17:59] LABS: Influenza A Detected (Not Detectd); Influenza B Not Detected (Not Detectd); RSV Not Detected (Not Detectd)
--- NOTE | 2024-08-11 18:45 | ED ---
General Adult HPI - General Chief complaint: Arrhythmia/Palpitations Stated complaint: body aches, fatigue,(35wks preg) Time Seen by Provider: 08/11/24 16:15 Source: patient, RN notes reviewed, old records reviewed Mode of arrival: wheelchair Limitations: no limitations - History of Present Illness Initial comments: Patient is a 23-year-old female who presents emergency department for evaluation of multiple complaints. She is currently approximately 35 weeks . She is G2, P1. Denies any vaginal bleeding or discharge. Denies any abdominal cramping or contractions. Feels generalized weakness, fatigue, headache. Is having some cough, nasal congestion. Possible acute fevers at home as well. Possible UTI as well as she states that her urine is more cloudy. Has been feeling nauseous as well with decreased oral intake. No significant abdominal pain. Is having somewhat chronic sciatica pain. Also is having a toothache wh ich has been ongoing. Unknown if it is all connected. States she does feel lightheaded but has not been eating much today which she attributes to her current symptoms. Presents for further evaluation at this time. States she feels dehydrated. Denies shortness of breath or chest pain. Patient already was evaluated and had stress testing in labor and delivery and was cleared. Sent down here for further workup. - Related Data Home Medications Medication Instructions Recorded Confirmed Vit No.179/Iron/Folic 1 tab PO DAILY 06/28/23 08/11/24 [ Tablet] Acetaminophen Tab [Tylenol Tab] 1,000 mg PO Q6H PRN 08/11/24 08/11/24 Omeprazole 20 mg PO HS 08/11/24 08/11/24 Previous Rx's Medication Instructions Recorded Nitrofurantoin Monohyd/M-Cryst 100 mg PO Q12HR 5 Days #10 cap 08/11/24 [Macrobid] Oseltamivir [Tamiflu] 75 mg PO Q12HR 5 Days #10 cap 08/11/24 Allergies Allergy/AdvReac Type Severity Reaction Status Date / Time amoxicillin Allergy Rash/Hives Verified 08/11/24 16:02 Review of Systems ROS Statement: Those systems with pertinent positive or pertinent negative responses have been documented in the HPI. Review of Systems: CONST: Denies fever EYES: Denies blurry vision ENT: Denies nasal congestion C/V: Endorses palpitations RESP: Denies shortness of breath GI: Endorses nausea : Denies dysuria SKIN: Denies rash. MSK: Denies joint pain. NEURO: Endorses fatigue, body aches ROS Other: All systems not noted in ROS Statement are negative. Past Medical History Past Medical History: No Reported History Additional Past Medical History / Comment(s): MONO History of Any Multi-Drug Resistant Organisms: None Reported Past Surgical History: No Surgical Hx Reported Past Anesthesia/Blood Transfusion Reactions: No Reported Reaction Past Psychological History: Anxiety, Depression Smoking Status: Never smoker Past Alcohol Use History: None Reported Past Drug Use History: None Reported - Past Family History Mother Family Medical History: No Reported History General Exam - General Exam Comments Initial Comments: General: Appears in no acute distress. HEAD: Normal with no signs of head trauma. EYES: PERRLA, EOMI, conjunctiva normal, no discharge. ENT: Hearing grossly intact, normal oropharynx. Dry mucous membranes RESPIRATORY: Clear breath sounds bilaterally. No wheezes, rales, or rhonchi. No hypoxia or respiratory distress. C/V: Tachycardic with regular rhythm. S1 and S2 auscultated, no edema, peripheral pulses 2+ and intact throughout ABD: Gravid uterus. No tenderness palpation of the abdomen. No guarding or rebound tenderness. EXT: Normal range of motion, no obvious deformity SKIN: No rashes or lesions observed on exposed skin. NEURO: Alert and oriented x 4. Limitations: no limitations Course Vital Signs 08/11/24 08/11/24 14:58 19:03 Temperature 98.4 F 98.7 F Pulse Rate 134 H 121 H Respiratory 20 16 Rate Blood Pressure 122/68 106/45 O2 Sat by Pulse 99 97 Oximetry Medical Decision Making - Medical Decision Making Was pt. sent in by a medical professional or institution (, PA, EDUCATION FINANCE PROCESSOR, urgent care, hospital, or shelter...) When possible be specific @ -No Did you speak to anyone other than the patient for history (EMS, parent, family, police, friend...)? What history was obtained from this source @ -No Did you review nursing and triage notes (agree or disagree)? Why? @ -I reviewed and agree with nursing and triage notes Were old charts reviewed (outside hosp., previous admission, EMS record, old EKG, old radiological studies, urgent care reports/EKG's, shelter records)? Report findings @ -No old charts were reviewed Differential Diagnosis (chest pain, altered mental status, abdominal pain women, abdominal pain men, vaginal bleeding, weakness, fever, dyspnea, syncope, headache, dizziness, GI bleed, back pain, seizure, CVA, palpatations, mental health, musculoskeletal)? @ -COVID, flu, pneumonia, dehydration, electrolyte abnormality. This list is not all inclusive. EKG interpreted by me (3pts min.). @ -As above X-rays interpreted by me (1pt min.). @ -Chest x-ray reveals no obvious acute cardiopulmonary process CT interpreted by me (1pt min.). @ -None done U/S interpreted by me (1pt. min.). @ -None done What testing was considered but not performed or refused? (CT, X-rays, U/S, labs)? Why? @ -None What meds were considered but not given or refused? Why? @ -None Did you discuss the management of the patient with other professionals (professionals i.e. , PA, EDUCATION FINANCE PROCESSOR, lab, RT, psych nurse, transition social worker, mid level business analyst, teacher, senior credit officer, keycase assembler)? Give summary @ -No Was smoking cessation discussed for >3mins.? @ -No Was critical care preformed (if so, how long)? @ -No Were there social determinants of health that impacted care today? How? (Homelessness, low income, unemployed, alcoholism, drug addiction, transpo rtation, low edu. Level, literacy, decrease access to med. care, halfway, rehab)? @ -No Was there de-escalation of care discussed even if they declined (Discuss DNR or withdrawal of care, Hospice)? DNR status @ -No What co-morbidities impacted this encounter? (DM, HTN, Smoking, COPD, CAD, Cancer, CVA, ARF, Chemo, Hep., AIDS, mental health diagnosis, sleep apnea, morbid obesity)? @ -35 weeks Was patient admitted / discharged? Hospital course, mention meds given and route, prescriptions, significant lab abnormalities, going to OR and other pertinent info. @ -Patient presents with what appears to be flulike symptoms. She also appears dehydrated. Patient be symptomatically treat with Zofran, fluids, Tylenol. Vitals remarkable for tachycardia however patient does appear clinically dehydrated and she will be given 2 L fluid bolus. Patient already received stress testing upstairs and labor and delivery and they stated that patient is cleared from their standpoint. This information was conveyed to our nursing staff. We will obtain general workup, screening EKG, screening chest x- ray, labs, viral swabs, urinalysis. Patient in agreement this plan. EKGs show sinus tachycardia which improved following 2 L fluid bolus. Labs are remarkable for asymptomatic bacteria as well as positive for influenza A. Chest x-ray unremarkable. I discussed results with patient that she is influenza A positive. She is feeling improved. Patient be started on Keflex for the asymptomatic bacteria due to her being 35 weeks she is started on Tamiflu. Symptoms started today. She was in agreement this plan. We did discuss she may feel worse including fevers, cough worsening cough and congestion. Instructed her to return to the ER if any worsening symptoms or concern. Recommend follow-up with her TECHNICIAN HELPER INSTRUMENT next week within the next 1 to 3 days. Patient was in agreement this plan. Strict return precautions discussed. I will provide the patient with a prescription for Keflex, Tamiflu. I instructed the patient to follow up with their PCP in the next 1-3 days.. I explained that the patient should return to the emergency department if they experience any worsening symptoms. Strict return precautions were discussed with the patient. The patient expressed understanding of these instructions. I answered all questions that the patient had. The patient was discharged home in good condition with their prescriptions and follow up information. Undiagnosed new problem with uncertain prognosis? @ -No Drug Therapy requiring intensive monitoring for toxicity (Heparin, Nitro, Insulin, Cardizem)? @ -No Were any procedures done? @ -No Diagnosis/symptom? @ -Asymptomatic bacteriuria in , influenza A positive, dehydration Acute, or Chronic, or Acute on Chronic? @ -Acute Uncomplicated (without systemic symptoms) or Complicated (systemic symptoms)? @ -Complicated Side effects of treatment? @ -No Exacerbation, Progression, or Severe Exacerbation? @ -No Poses a threat to life or bodily function? How? (Chest pain, [place], [place], pneumonia, PE, COPD, DKA, ARF, appy, cholecystitis, CVA, Diverticulitis, Homicidal, Suicidal, threat to staff... and all critical care pts) @ -Unlikely at this time - Lab Data Result diagrams: 08/11/24 16:54 08/11/24 16:54 Lab Results 08/11/24 08/11/24 08/11/24 Range/Units 16:21 16:37 16:54 WBC 10.3 (3.8-10.6) k/uL RBC 4.55 (3.80-5.40) m/uL Hgb 11.5 (11.4-16.0) gm/dL Hct 35.3 (34.0-46.0) % MCV 77.5 L (80.0-100.0) fL MCH 25.2 (25.0-35.0) pg MCHC 32.5 (31.0-37.0) g/dL RDW 13.6 (11.5-15.5) % Plt Count 125 L (150-450) k/uL MPV 8.5 Neutrophils % 91 % Lymphocytes % 2 % Monocytes % 5 % Eosinophils % 0 % Basophils % 0 % Neutrophils # 9.5 H (1.3-7.7) k/uL Lymphocytes # 0.2 L (1.0-4.8) k/uL Monocytes # 0.6 (0-1.0) k/uL Eosinophils # 0.0 (0-0.7) k/uL Basophils # 0.0 (0-0.2) k/uL Hypochromasia Slight Sodium (137-145) mmol/L Potassium (3.5-5.1) mmol/L Chloride (98-107) mmol/L Carbon Dioxide (22-30) mmol/L Anion Gap mmol/L BUN (7-17) mg/dL Creatinine (0.52-1.04) mg/dL Est GFR (CKD-EPI)AfAm (>60 ml/min/1.73 sqM) Est GFR (CKD-EPI)NonAf (>60 ml/min/1.73 sqM) Glucose (74-99) mg/dL Plasma Lactic Acid Edgar (0.7-2.0) mmol/L Calcium (8.4-10.2) mg/dL Total Bilirubin (0.2-1.3) mg/dL AST (14-36) U/L ALT (4-34) U/L Alkaline Phosphatase (38-126) U/L Total Protein (6.3-8.2) g/dL Albumin (3.5-5.0) g/dL Urine Color Light Yellow Urine Appearance Cloudy H (Clear) Urine pH 6.5 (5.0-8.0) Ur Specific [place] 1.012 (1.001-1.035) Urine Protein Negative (Negative) Urine Glucose (UA) Negative (Negative) Urine Ketones 2+ H (Negative) Urine Blood Negative (Negative) Urine Nitrite Negative (Negative) Urine Bilirubin Negative (Negative) Urine Urobilinogen <2.0 (<2.0) mg/dL Ur Leukocyte Esterase Negative (Negative) Urine RBC <1 (0-5) /hpf Urine WBC 1 (0-5) /hpf Ur Squamous Epith Cells 1 (0-4) /hpf Urine Bacteria Moderate H (None) /hpf Urine Mucus Moderate H (None) /hpf Influenza Type A (PCR) Detected A (Not Detectd) Influenza Type B (PCR) Not Detected (Not Detectd) RSV (PCR) Not Detected (Not Detectd) SARS-CoV-2 (PCR) Not Detected (Not Detectd) 08/11/24 08/11/24 Range/Units 16:54 16:54 WBC (3.8-10.6) k/uL RBC (3.80-5.40) m/uL Hgb (11.4-16.0) gm/dL Hct (34.0-46.0) % MCV (80.0-100.0) fL MCH (25.0-35.0) pg MCHC (31.0-37.0) g/dL RDW (11.5-15.5) % Plt Count (150-450) k/uL MPV Neutrophils % % Lymphocytes % % Monocytes % % Eosinophils % % Basophils % % Neutrophils # (1.3-7.7) k/uL Lymphocytes # (1.0-4.8) k/uL Monocytes # (0-1.0) k/uL Eosinophils # (0-0.7) k/uL Basophils # (0-0.2) k/uL Hypochromasia Sodium 134 L (137-145) mmol/L Potassium 3.6 (3.5-5.1) mmol/L Chloride 103 (98-107) mmol/L Carbon Dioxide 20 L (22-30) mmol/L Anion Gap 11 mmol/L BUN 3 L (7-17) mg/dL Creatinine 0.58 (0.52-1.04) mg/dL Est GFR (CKD-EPI)AfAm >90 (>60 ml/min/1.73 sqM) Est GFR (CKD-EPI)NonAf >90 (>60 ml/min/1.73 sqM) Glucose 73 L (74-99) mg/dL Plasma Lactic Acid Edgar 0.8 (0.7-2.0) mmol/L Calcium 8.8 (8.4-10.2) mg/dL Total Bilirubin 1.2 (0.2-1.3) mg/dL AST 40 H (14-36) U/L ALT 34 (4-34) U/L Alkaline Phosphatase 142 H (38-126) U/L Total Protein 7.0 (6.3-8.2) g/dL Albumin 4.0 (3.5-5.0) g/dL Urine Color Urine Appearance (Clear) Urine pH (5.0-8.0) Ur Specific [place] (1.001-1.035) Urine Protein (Negative) Urine Glucose (UA) (Negative) Urine Ketones (Negative) Urine Blood (Negative) Urine Nitrite (Negative) Urine Bilirubin (Negative) Urine Urobilinogen (<2.0) mg/dL Ur Leukocyte Esterase (Negative) Urine RBC (0-5) /hpf Urine WBC (0-5) /hpf Ur Squamous Epith Cells (0-4) /hpf Urine Bacteria (None) /hpf Urine Mucus (None) /hpf Influenza Type A (PCR) (Not Detectd) Influenza Type B (PCR) (Not Detectd) RSV (PCR) (Not Detectd) SARS-CoV-2 (PCR) (Not Detectd) - EKG Data -: EKG Interpreted by Me EKG Comments: 12-lead Electrocardiogram Interpretation Note EKG was reviewed and interpreted by myself. 12-lead ECG performed at 1531 is interpreted by me as revealing sinus tachycardia at a rate of 136 beats per minute. [place] normal. IA interval is 100 ms, QRS duration 74 ms, QTc is 392 ms.. There were no ST or T wave abnormalities to suggest myocardial ischemia or injury. R wave progression across the precordium was satisfactory. By my interpretation this EKG is non-diagnostic for acute ischemia. 12-lead Electrocardiogram Interpretation Note EKG was reviewed and interpreted by myself. 12-lead ECG performed at 1758 is interpreted by me as revealing sinus tachycardia at a rate of 122 beats per minute. [place] is normal. IA interval is 116 ms, QRS duration 72 ms, QTc is 410 ms. There were no ST or T wave abnormalities to suggest myocardial ischemia or injury. R wave progression across the precordium was satisfactory. By my interpretation this EKG is non-diagnostic for acute ischemia. Disposition Clinical Impression: Asymptomatic bacteriuria during , Influenza A, Dehydration Disposition: HOME SELF-CARE Condition: Good Instructions (If sedation given, give patient instructions): Influenza (ED) Additional Instructions: Follow-up with your PCP/TECHNICIAN HELPER INSTRUMENT in the next 1 to 3 days. You have influenza A infection as well as asymptomatic bacteriuria. Complete course of antibiotics as well as Tamiflu. Return if any worsening symptoms. Prescriptions: Nitrofurantoin Monohyd/M-Cryst [Macrobid] 100 mg PO Q12HR 5 Days #10 cap Oseltamivir [Tamiflu] 75 mg PO Q12HR 5 Days #10 cap Is patient prescribed a controlled substance at d/c from ED?: No Referrals: Cara Monreal DO [Primary Care Provider] - 1-2 days Time of Disposition: 18:44
[2024-08-11] MEDS: OSELTAMIVIR 75 MG CAP PO STA (18:56)
[2024-08-11] MEDS: NITROFURANTOIN MONOHYD/M-CRYST 100 MG CAP PO STA (18:56)
[2024-08-11] MEDS: ONDANSETRON 4 MG ODT STARTER PACK 2 TAB BTL PO STA (18:57)
[2024-08-11 19:05] VITALS: BP 106/45; PULSE 121; RESP 16; TEMP 98.7
--- NOTE | 2024-08-11 19:38 | XR ---
EXAMINATION TYPE: XR chest 1V portable DATE OF EXAM: 08/11/2024 5:55 PM COMPARISON: None. CLINICAL INDICATION: Female, 23 years old with history of viral symptoms., TECHNIQUE: XR chest 1V portable view(s) obtained. FINDINGS: The heart size is normal. The pulmonary vasculature is normal. The lungs are clear. IMPRESSION: 1. No acute pulmonary process. [facility], Workstation: [facility], 08/11/2024 7:36 PM
== END 2024-08-11 19:08 | disposition home or self-care (01) ==
LOC: EC 14:44
DX: O99.513 Diseases of the respiratory system complicating pregnancy, third trimester (principal); O23.93 Unspecified genitourinary tract infection in pregnancy, third trimester; E86.0 Dehydration; J10.1 Influenza due to other identified influenza virus with other respiratory manifestations; Z88.0 Allergy status to penicillin; Z3A.35 35 weeks gestation of pregnancy
CPT/HCPCS: 36415; 93005; 80053; 83605; 85025; 81001; 87636; 71045; 99285; 96374; 96361; J2405; S0119

== ENCOUNTER 2024-09-16 23:46 | Inpatient (IN) | payer OTHER ==
[2024-09-17] MEDS ORDERED: LIDOCAINE 0.5% (PF) 5 MG/ML (50 ML SDV) SQ PRN (02:01)
[2024-09-17] MEDS ORDERED: OXYTOCIN 10 UNIT/ML 1 ML VIAL IM PRN (02:01)
[2024-09-17] MEDS ORDERED: miSOPROStoL 200 MCG TAB PO PRN (02:01)
[2024-09-17] MEDS ORDERED: TERBUTALINE 1 MG/ML VIAL SQ PRN (02:01)
[2024-09-17] MEDS ORDERED: METHYLERGONOVINE 0.2 MG/ML 1 ML AMP IM PRN (02:01)
[2024-09-17] MEDS ORDERED: TRANEXAMIC 1,000 MG/100ML-NACL 1,000 MG in EMPTY BAG 1 BAG IV PRN (02:01)
[2024-09-17] MEDS ORDERED: CARBOPROST TROMETHAMINE 250 MCG/ML 1 ML AMP IM PRN (02:01)
[2024-09-17] MEDS ORDERED: miSOPROStoL 200 MCG TAB RECTAL PRN (02:01)
[2024-09-17 02:21] LABS: Basophils % (A) 0 %; Eosinophils # (A) 0.1 k/uL (0-0.7); Eosinophils % (A) 1 %; HCT 35.7 % (34.0-46.0); HGB 11.3 gm/dL (11.4-16.0); Hypochromasia Moderate; Lymphocytes # (A) 2.1 k/uL (1.0-4.8); Lymphocytes % (A) 13 %; MCHC 31.6 g/dL (31.0-37.0); Mean Platelet Volume 8.2; Microcytosis Slight; Monocytes % (A) 6 %; Neutrophils # (A) 12.8 k/uL (1.3-7.7); Neutrophils % (A) 78 %; Platelet Count 163 k/uL (150-450); RDW 15.1 % (11.5-15.5); WBC 16.5 k/uL (3.8-10.6)
[2024-09-17] MEDS ORDERED: ROPIVACAINE 5 MG/ML 30 ML VIAL ONE (03:23)
[2024-09-17] MEDS ORDERED: fentaNYL (PF) 50 MCG/ML 5 ML AMP ONE (03:23)
[2024-09-17] MEDS ORDERED: SODIUM CHLORIDE 0.9% 250 ML BAG ONE (03:23)
[2024-09-17] MEDS ORDERED: LANOLIN CREAM 1 GM TUBE TOPICAL PRN (06:38)
[2024-09-17] MEDS ORDERED: diphenhydrAMINE 25 MG CAP PO PRN (06:38)
[2024-09-17] MEDS ORDERED: ACETAMINOPHEN TAB 500 MG TAB PO PRN (06:38)
[2024-09-17] MEDS ORDERED: ZOLPIDEM 5 MG TAB PO PRN (06:38)
[2024-09-17] MEDS ORDERED: BENZOCAINE/MENTHOL SPRAY 1 GM/SPRAY AEROSOL TOPICAL PRN (06:38)
[2024-09-17] MEDS ORDERED: HYDROCORTISONE 2.5% RECTAL CREAM 30 GM TUBE RECTAL PRN (06:38)
[2024-09-17] MEDS ORDERED: diphenhydrAMINE 50 MG/ML 1 ML VIAL IVP PRN ×2 (06:38)
[2024-09-17] MEDS ORDERED: SIMETHICONE 80 MG CHEWABLE PO PRN (06:38)
[2024-09-17] MEDS ORDERED: diphenhydrAMINE 50 MG CAP PO PRN (06:38)
[2024-09-17] MEDS ORDERED: OXYTOCIN 30 UNITS/500 ML NS 30 UNIT in SALINE 1 500ML.BAG IV SCH (06:45)
--- NOTE | 2024-09-17 06:48 | P.HPOB ---
History of Present Illness H&P Date: 09/17/24 Chief Complaint: 40-6/7 weeks, labor The patient is a 24-year-old 3 para 1-0-1-1 admitted at 40-6/7 weeks as established by last menstrual period and confirmed by 22-week ultrasound. She is admitted in early active labor with all signs reassuring, category 1 h eart rate tracing. Her has been uncomplicated. Group B strep status is negative. Obstetrical history: 3 para 1-0-1-1 with 1 term vaginal delivery without complications. EDC of 09/11/2024 was established by last menstrual period and confirmed by 22-week ultrasound. Laboratory workup demonstrates a blood type of B+ with a negative antibody screen. Rubella status is immune. The remainder of the laboratory workup is within normal limits. 1 hour Glucola was normal and group B strep status is negative. Gynecologic history: Unremarkable with no history of any infections to include STDs. Review of Systems Review of systems is confined to history of present illness. Past Medical History Past Medical History: Asthma Additional Past Medical History / Comment(s): MONO History of Any Multi-Drug Resistant Organisms: None Reported Past Surgical History: No Surgical Hx Reported Past Anesthesia/Blood Transfusion Reactions: No Reported Reaction Past Psychological History: Anxiety, Depression Smoking Status: Never smoker Past Alcohol Use History: None Reported Past Drug Use History: None Reported - Past Family History Mother Family Medical History: No Reported History Medications and Allergies Home Medications Medication Instructions Recorded Confirmed Type Vit No.179/Iron/Folic 1 tab PO DAILY 06/28/23 09/16/24 History [ Tablet] Acetaminophen Tab [Tylenol Tab] 1,000 mg PO Q6H PRN 08/11/24 09/16/24 History Omeprazole 20 mg PO HS 08/11/24 09/16/24 History Allergies Allergy/AdvReac Type Severity Reaction Status Date / Time amoxicillin Allergy Rash/Hives Verified 08/11/24 16:02 Exam Vital Signs Temp Pulse Resp BP Pulse Ox 09/17/24 01:39 98.0 F 99 16 136/77 99 09/16/24 23:51 97.9 F 93 16 136/77 99 Intake and Output 09/16/24 09/16/24 09/17/24 14:59 22:59 06:59 Other: Weight 95.708 kg In general, this is a well-developed, well-nourished white female in no acute distress. Her heart has a regular rhythm and rate without murmur. Her lungs are clear to auscultation bilateral in all [place]. Her abdomen is gravid, nond istended, has normal active bowel sounds, soft, nontender, without any palpable masses aside from uterine fundus. Her extremities are without any cyanosis, clubbing, or edema and are nontender to palpation bilaterally. Digital cervical examination demonstrated change in triage consistent with early labor. Results Result Diagrams: 09/17/24 02:00 Abnormal Lab Results - Last 24 Hours (Table) 09/17/24 Range/Units 02:00 WBC 16.5 H (3.8-10.6) k/uL Hgb 11.3 L (11.4-16.0) gm/dL MCV 76.0 L (80.0-100.0) fL MCH 24.0 L (25.0-35.0) pg Neutrophils # 12.8 H (1.3-7.7) k/uL Assessment and Plan (1) Active labor at term Current Visit: Yes Status: Acute Code(s): [id number] - SNOMED Code(s): 94149484 (2) Post-dates Current Visit: Yes Status: Acute Code(s): O48.0 - POST-TERM SNOMED Code(s): 67291445 Plan: The patient is admitted for active management of labor. She will have close maternal and surveillance and expectant management will be practiced. She is a good candidate for either IV or epidural analgesia, whichever she may choose. We would anticipate normal spontaneous vaginal delivery.
--- NOTE | 2024-09-17 06:50 | P.PROBDLV ---
Vaginal Delivery Note - . Vaginal Delivery Note: Patient is a 24-year-old 3 para 1-0-1-1 admitted at 40-6/7 weeks by good dating parameters. She is admitted in early labor with all signs reassuring. Her has been uncomplicated and group B strep status is negative. On labor and delivery, she was found with a category 1 heart rate tracing. She had an epidural catheter placed for analgesia and then progressed fairly quickly to complete. She pushed over the course of approximately 3-4 contr actions to a normal spontaneous vaginal delivery of a viable 7 pound 0.9 ounce baby girl with Apgars of 9 at 1 minute and 9 at 5 minutes delivered in the direct occiput anterior position. There was a loose nuchal cord x 1 which was reduced following delivery of the . The placenta was delivered spontaneously, intact, and grossly normal with a grossly normal, centrally inserted three-vessel cord. There were no significant lacerations the perineum, vagina, or cervix. She did have periurethral lacerations which were not bleeding and not repaired. Estimated blood loss was 100 mL or less. There were no complications. All sponge, instrument, and needle counts were correct. Both mother and infant are resting comfortably in recovery.
[2024-09-17] MEDS: IBUPROFEN 800 MG TAB PO PRN (07:55)
[2024-09-17] MEDS: SENNOSIDES-DOCUSATE SODIUM 1 EACH TAB PO SCH (07:56)
[2024-09-17] MEDS: LACTATED RINGERS 1,000 ML IV SCH (16:25)
[2024-09-18 06:37] LABS: Basophils % (A) 0 %; Eosinophils # (A) 0.1 k/uL (0-0.7); Eosinophils % (A) 1 %; HCT 32.2 % (34.0-46.0); Hypochromasia Slight; Lymphocytes # (A) 2.1 k/uL (1.0-4.8); Lymphocytes % (A) 19 %; MCH 23.7 pg (25.0-35.0); MCV 76.6 fL (80.0-100.0); Mean Platelet Volume 8.3; Microcytosis Slight; Monocytes # (A) 0.7 k/uL (0-1.0); Monocytes % (A) 6 %; Neutrophils # (A) 7.8 k/uL (1.3-7.7); Neutrophils % (A) 71 %; Platelet Count 135 k/uL (150-450); RDW 15.4 % (11.5-15.5)
[2024-09-18 07:35] VITALS: BP 119/78; PULSE 65; RESP 18; TEMP 98.1
--- NOTE | 2024-09-18 10:32 | P.DS ---
Providers Date of admission: 09/17/24 01:14 Expected date of discharge: 09/18/24 Attending physician: Kandi Neff MD Primary care physician: Stated None Hospital Course: 24 year old PPD#1 s/p without complications. The patient is doing well this morning and had no acute events overnight. She has no complaints this morning. She reports minimal lochia, passing flatus, voiding without difficulty, ambulating, and eating/drinking without nausea or vomiting. doing well at bedside. She denies chest pain, shortness of breathing, fevers, or chills overnight. She denies pain or swelling in the legs. restrictions are reviewed with the patient including pelvic rest for 6 weeks. The patient is encouraged to call the office if she experiences any heavy bleeding, foul- smelling discharge, breast complaints, or any if she has any other concerns. She will follow up in the office with in 6 weeks for exam. All questions are answered. Assessment: 24 year old PPD#1 s/p Patient Condition at Discharge: Good Plan - Discharge Summary Discharge Rx Participant: No New Discharge Prescriptions: New Ibuprofen [Motrin] 600 mg PO Q6HR PRN #30 tab PRN Reason: Mild Pain (Scale 1 To 3) No Action Omeprazole 20 mg PO HS Vit No.179/Iron/Folic [ Tablet] 1 tab PO DAILY Acetaminophen Tab [Tylenol Tab] 1,000 mg PO Q6H PRN PRN Reason: Pain Or Fever > 100.5 Discharge Medication List Vit No.179/Iron/Folic [ Tablet] 1 tab PO DAILY 06/28/23 [History] Acetaminophen Tab [Tylenol Tab] 1,000 mg PO Q6H PRN 08/11/24 [History] Omeprazole 20 mg PO HS 08/11/24 [History] Ibuprofen [Motrin] 600 mg PO Q6HR PRN #30 tab 09/18/24 [Rx] Follow up Appointment(s)/Referral(s): Kandi Neff MD [STAFF PHYSICIAN] - 6 Weeks Activity/Diet/Wound Care/Special Instructions: Instructions 1. Do not begin any exercise program for 3 weeks. 2. Do not resume sexual relations for 6 weeks or longer if uncomfortable. 3. You may take tub baths or showers at any time. 4. You may use tampons if desired after 6 weeks. 5. Keep any areas repaired with stitches clean and dry. 6. If you are not nursing, wear a good fitting, supportive bra during the day and limit fluid intake for at least 1 week to prevent breast engorgement. 7. Call the office, , within the next week to make appointment for your 6 week checkup if it has not already been made. 8. Report any of the following occurrences to the doctor promptly: a. Heavy, excessive bleeding b. Chills, fever c. Burning or frequency of urination d. Pain or redness and breasts if nursing e. Increasing pain or swelling of vulva (stitches). In addition to the above instructions, the following additional should be follo wed: 1. No heavy lifting or straining (exercising) until after 6 week checkup. 2. Keep abdominal incision clean and dry: You may wear a dressing if more comfortable. 3. Make office appointment for 2 weeks after delivery date. Discharge Disposition: HOME SELF-CARE
== END 2024-09-18 12:30 | disposition home or self-care (01) | DRG 560 ==
LOC: FBPOP 23:46 → 4FBP 09-17 01:14
PROVIDERS: ADMIT Obstetrics & Gynecology; ATTEND Obstetrics & Gynecology
PROC: 10E0XZZ Delivery of Products of Conception, External Approach (ICD-10-PCS; principal; 2024-09-17)
DX: O48.0 Post-term pregnancy (principal); O69.81X0 Labor and delivery complicated by cord around neck, without compression, not applicable or unspecified; O71.82 Other specified trauma to perineum and vulva; Z37.0 Single live birth; Z3A.40 40 weeks gestation of pregnancy; Z88.0 Allergy status to penicillin; Z79.899 Other long term (current) drug therapy
CPT/HCPCS: 59025; 85025; 86850; 86900; 86901; 99213

== ENCOUNTER 2024-09-26 20:50 | Emergency (ER) | payer OTHER ==
[2024-09-26 20:58] VITALS: RESP 18
--- NOTE | 2024-09-26 21:13 | ED ---
Female Urogenital HPI - General Chief complaint: Vaginal Bleeding Stated complaint: 9 days -vaginal bleeding Time Seen by Provider: 09/26/24 21:02 Source: patient, RN notes reviewed Limitations: no limitations - History of Present Illness Initial comments: 24-year-old female, [id number], with no significant medical history presents emergency department at 9 days for complaint of vaginal bleeding after delivery. Patient states that she had a vaginal delivery that was after term on 09/17/24, and has been experiencing a mild about of bleeding however today experienced a increase in vaginal bleeding where she saturated a maxi pad and a half in 2 hours with mild passage of clots. She denies abdominal pain, pelvic cramping, dizziness, lightheadedness, heart palpitations, urinary complaints. Denies complications at delivery, states that she was given Pitocin as a precautionary measure. Overall states that she is feeling well. Follow-up appointment with OB is in October. Patient's fetus was delivered by Dr. Espinosa. - Related Data Home Medications Medication Instructions Recorded Confirmed Vit No.179/Iron/Folic 1 tab PO DAILY 06/28/23 09/16/24 [ Tablet] Acetaminophen Tab [Tylenol Tab] 1,000 mg PO Q6H PRN 08/11/24 09/16/24 Omeprazole 20 mg PO HS 08/11/24 09/16/24 Previous Rx's Medication Instructions Recorded Ibuprofen [Motrin] 600 mg PO Q6HR PRN #30 tab 09/18/24 Allergies Allergy/AdvReac Type Severity Reaction Status Date / Time amoxicillin Allergy Rash/Hives Verified 09/26/24 20:56 Review of Systems ROS Statement: Those systems with pertinent positive or pertinent negative responses have been documented in the HPI. ROS Other: All systems not noted in ROS Statement are negative. Past Medical History Past Medical History: Asthma Additional Past Medical History / Comment(s): MONO History of Any Multi-Drug Resistant Organisms: None Reported Past Surgical History: No Surgical Hx Reported Past Anesthesia/Blood Transfusion Reactions: No Reported Reaction Past Psychological History: Anxiety, Depression Smoking Status: Never smoker Past Alcohol Use History: None Reported Past Drug Use History: None Reported - Past Family History Mother Family Medical History: No Reported History General Exam Limitations: no limitations General appearance: alert, in no apparent distress Respiratory exam: Present: normal lung sounds bilaterally. Absent: respiratory distress, wheezes, rales, rhonchi, stridor Cardiovascular Exam: Present: regular rate, normal rhythm, normal heart sounds. Absent: systolic murmur, diastolic murmur, rubs, gallop, clicks GI/Abdominal exam: Present: soft, normal bowel sounds. Absent: distended, tenderness, guarding, rebound, rigid External exam: Present: normal external exam Speculum exam: Present: vaginal bleeding. Absent: erythema, cervical discharge By manual exam: Present: normal by manual exam. Absent: cervical motion tenderness, adnexal tenderness Extremities exam: Present: normal inspection, full ROM, normal capillary refill. Absent: tenderness, pedal edema, joint swelling, calf tenderness Back exam: Present: normal inspection Course Vital Signs 09/26/24 20:56 Temperature 98.1 F Pulse Rate 101 H Respiratory 18 Rate Blood Pressure 139/88 O2 Sat by Pulse 98 Oximetry Medical Decision Making - Medical Decision Making Was pt. sent in by a medical professional or institution (, PA, AMMUNITION ASSEMBLY I LABORER, urgent care, hospital, or long term...) When possible be specific @ -No Did you speak to anyone other than the patient for history (EMS, parent, family, police, friend...)? What history was obtained from this source @ -No Did you review nursing and triage notes (agree or disagree)? Why? @ -I reviewed and agree with nursing and triage notes Were old charts reviewed (outside hosp., previous admission, EMS record, old EKG , old radiological studies, urgent care reports/EKG's, long term records)? Report findings @ -No old charts were reviewed Differential Diagnosis (chest pain, altered mental status, abdominal pain women, abdominal pain men, vaginal bleeding, weakness, fever, dyspnea, syncope, headache, dizziness, GI bleed, back pain, seizure, CVA, palpatations, mental health, musculoskeletal)? @ -Differential Vaginal Bleeding: Spontaneous , threatened , molar , ectopic , bloody show, incompetent cervix, abruptioplacenta, placenta previa, uterine rupture, dysfunctional uterine bleeding, hemorrhage, uterine fibroids, this is not meant to be an all-inclusive list. EKG interpreted by me (3pts min.). @ -None X-rays interpreted by me (1pt min.). @ -None done CT interpreted by me (1pt min.). @ -None done U/S interpreted by me (1pt. min.). @ -Transvaginal ultrasound completed with heterogeneous endometrium likely representing blood products with no internal vascularity suggesting retained products What testing was considered but not performed or refused? (CT, X-rays, U/S, labs)? Why? @ -None What meds were considered but not given or refused? Why? @ -None Did you discuss the management of the patient with other professionals (shimon servin i.e. , PA, AMMUNITION ASSEMBLY I LABORER, lab, RT, psych nurse, sexual assault social worker, fish and game club manager, teacher, airconditioning drafting officer, casework supervisor)? Give summary @ -No Was smoking cessation discussed for >3mins.? @ -No Was critical care preformed (if so, how long)? @ -No Were there social determinants of health that impacted care today? How? (Homelessness, low income, unemployed, alcoholism, drug addiction, transportation, low edu. Level, literacy, decrease access to med. care, [place] [facility], rehab)? @ -No Was there de-escalation of care discussed even if they declined (Discuss DNR or withdrawal of care, Hospice)? DNR status @ -No What co-morbidities impacted this encounter? (DM, HTN, Smoking, COPD, CAD, Cancer, CVA, ARF, Chemo, Hep., AIDS, mental health diagnosis, sleep apnea, morbid obesity)? @ -None Was patient admitted / discharged? Hospital course, mention meds given and route, prescriptions, significant lab abnormalities, going to OR and other pertinent info. @ -Discharge. 24-year-old female presenting with vaginal bleeding 90s . Overall she is well-appearing in no signs of distress. Vitals are stable, not hypotensive. Abdominal examination is unremarkable. Pelvic examination completed with nursing staff at bedside reveals vaginal bleeding with no cervical motion tenderness. Laboratory test including CBC, coagulation, CMP unremarkable. Urinalysis remarkable for blood. Ultrasound completed with no evidence of retained products. While patient's been emergency department her bleeding is significantly subsided. Recommend that she follow-up with OB in the next week and return parameters have been discussed. Case discussed with Dr. Carbajal Undiagnosed new problem with uncertain prognosis? @ -No Drug Therapy requiring intensive monitoring for toxicity (Heparin, Nitro, Insulin, Cardizem)? @ -No Were any procedures done? @ -No Diagnosis/symptom? @ -\post vaginal bleeding Acute, or Chronic, or Acute on Chronic? @ -Acute Uncomplicated (without systemic symptoms) or Complicated (systemic symptoms)? @ -uncomplicated Side effects of treatment? @ -No Exacerbation, Progression, or Severe Exacerbation? @ -No Poses a threat to life or bodily function? How? (Chest pain, USA, PR, pneumonia, PE, COPD, DKA, ARF, appy, cholecystitis, CVA, Diverticulitis, Homicidal, Suicidal, threat to staff... and all critical care pts) @ -No - Lab Data Result diagrams: 09/26/24 21:20 09/26/24 21:20 Lab Results 09/26/24 09/26/24 09/26/24 Range/Units 21:20 21:20 21:20 WBC 9.6 (3.8-10.6) k/uL RBC 5.21 (3.80-5.40) m/uL Hgb 12.0 (11.4-16.0) gm/dL Hct 39.9 (34.0-46.0) % MCV 76.7 L (80.0-100.0) fL MCH 22.9 L (25.0-35.0) pg MCHC 29.9 L (31.0-37.0) g/dL RDW 14.8 (11.5-15.5) % Plt Count 206 (150-450) k/uL MPV 7.4 Neutrophils % 64 % Lymphocytes % 25 % Monocytes % 6 % Eosinophils % 2 % Basophils % 0 % Neutrophils # 6.1 (1.3-7.7) k/uL Lymphocytes # 2.4 (1.0-4.8) k/uL Monocytes # 0.6 (0-1.0) k/uL Eosinophils # 0.2 (0-0.7) k/uL Basophils # 0.0 (0-0.2) k/uL Hypochromasia Moderate Microcytosis Slight PT 10.5 (10.0-12.5) sec INR 0.9 (<1.2) APTT 24.2 (22.0-30.0) sec Sodium 139 (137-145) mmol/L Potassium 3.8 (3.5-5.1) mmol/L Chloride 105 (98-107) mmol/L Carbon Dioxide 23 (22-30) mmol/L Anion Gap 11 mmol/L BUN 17 (7-17) mg/dL Creatinine 0.56 (0.52-1.04) mg/dL Est GFR (CKD-EPI)AfAm >90 (>60 ml/min/1.73 sqM) Est GFR (CKD-EPI)NonAf >90 (>60 ml/min/1.73 sqM) Glucose 77 (74-99) mg/dL Calcium 8.9 (8.4-10.2) mg/dL Total Bilirubin 0.9 (0.2-1.3) mg/dL AST 20 (14-36) U/L ALT 17 (4-34) U/L Alkaline Phosphatase 134 H (38-126) U/L Total Protein 7.3 (6.3-8.2) g/dL Albumin 4.0 (3.5-5.0) g/dL Urine Color Urine Appearance (Clear) Urine pH (5.0-8.0) Ur Specific [place] (1.001-1.035) Urine Protein (Negative) Urine Glucose (UA) (Negative) Urine Ketones (Negative) Urine Blood (Negative) Urine Nitrite (Negative) Urine Bilirubin (Negative) Urine Urobilinogen (<2.0) mg/dL Ur Leukocyte Esterase (Negative) Urine RBC (0-5) /hpf Urine WBC (0-5) /hpf Urine Bacteria (None) /hpf Blood Type Blood Type Recheck Bld Type Recheck Status Antibody Screen Spec Expiration Date 09/26/24 09/26/24 Range/Units 21:20 22:45 WBC (3.8-10.6) k/uL RBC (3.80-5.40) m/uL Hgb (11.4-16.0) gm/dL Hct (34.0-46.0) % MCV (80.0-100.0) fL MCH (25.0-35.0) pg MCHC (31.0-37.0) g/dL RDW (11.5-15.5) % Plt Count (150-450) k/uL MPV Neutrophils % % Lymphocytes % % Monocytes % % Eosinophils % % Basophils % % Neutrophils # (1.3-7.7) k/uL Lymphocytes # (1.0-4.8) k/uL Monocytes # (0-1.0) k/uL Eosinophils # (0-0.7) k/uL Basophils # (0-0.2) k/uL Hypochromasia Microcytosis PT (10.0-12.5) sec INR (<1.2) APTT (22.0-30.0) sec Sodium (137-145) mmol/L Potassium (3.5-5.1) mmol/L Chloride (98-107) mmol/L Carbon Dioxide (22-30) mmol/L Anion Gap mmol/L BUN (7-17) mg/dL Creatinine (0.52-1.04) mg/dL Est GFR (CKD-EPI)AfAm (>60 ml/min/1.73 sqM) Est GFR (CKD-EPI)NonAf (>60 ml/min/1.73 sqM) Glucose (74-99) mg/dL Calcium (8.4-10.2) mg/dL Total Bilirubin (0.2-1.3) mg/dL AST (14-36) U/L ALT (4-34) U/L Alkaline Phosphatase (38-126) U/L Total Protein (6.3-8.2) g/dL Albumin (3.5-5.0) g/dL Urine Color Light Red Urine Appearance Cloudy H (Clear) Urine pH 6.0 (5.0-8.0) Ur Specific [place] 1.014 (1.001-1.035) Urine Protein 1+ H (Negative) Urine Glucose (UA) Negative (Negative) Urine Ketones Negative (Negative) Urine Blood Large H (Negative) Urine Nitrite Negative (Negative) Urine Bilirubin Negative (Negative) Urine Urobilinogen <2.0 (<2.0) mg/dL Ur Leukocyte Esterase Moderate H (Negative) Urine RBC >182 H (0-5) /hpf Urine WBC 37 H (0-5) /hpf Urine Bacteria Rare H (None) /hpf Blood Type B Positive Blood Type Recheck B Pos Bld Type Recheck Status No Antibody Screen NEGATIVE Spec Expiration Date 09/29/20242319 Disposition Clinical Impression: Vaginal bleeding Disposition: HOME SELF-CARE Condition: Good Additional Instructions: Please return to the Emergency Department if symptoms worsen or any other concerns. Is patient prescribed a controlled substance at d/c from ED?: No Referrals: Cara Monreal DO [Primary Care Provider] - 1-2 days Time of Disposition: 23:57
[2024-09-26 21:34] LABS: Basophils % (A) 0 %; Eosinophils # (A) 0.2 k/uL (0-0.7); Eosinophils % (A) 2 %; HCT 39.9 % (34.0-46.0); Hypochromasia Moderate; Lymphocytes # (A) 2.4 k/uL (1.0-4.8); Lymphocytes % (A) 25 %; MCH 22.9 pg (25.0-35.0); MCHC 29.9 g/dL (31.0-37.0); MCV 76.7 fL (80.0-100.0); Mean Platelet Volume 7.4; Microcytosis Slight; Monocytes # (A) 0.6 k/uL (0-1.0); Monocytes % (A) 6 %; Neutrophils # (A) 6.1 k/uL (1.3-7.7); Neutrophils % (A) 64 %; Platelet Count 206 k/uL (150-450); RBC 5.21 m/uL (3.80-5.40); RDW 14.8 % (11.5-15.5); WBC 9.6 k/uL (3.8-10.6)
[2024-09-26 21:43] LABS: INR 0.9 (<1.2); Partial Thromboplastin Time 24.2 sec (22.0-30.0); Prothrombin Time 10.5 sec (10.0-12.5)
[2024-09-26 21:53] LABS: ALT 17 U/L (4-34); AST 20 U/L (14-36); African American GFR (CKD) >90 (>60 ml/min/1.73 sqM); Alkaline Phosphatase 134 U/L (38-126); Anion Gap 11 mmol/L; Blood Urea Nitrogen 17 mg/dL (7-17); Calcium 8.9 mg/dL (8.4-10.2); Carbon Dioxide 23 mmol/L (22-30); Chloride 105 mmol/L (98-107); Glucose 77 mg/dL (74-99); Non-African American GFR(CKD) >90 (>60 ml/min/1.73 sqM); Potassium 3.8 mmol/L (3.5-5.1); Sodium 139 mmol/L (137-145); Total Bilirubin 0.9 mg/dL (0.2-1.3); Total Protein 7.3 g/dL (6.3-8.2)
--- NOTE | 2024-09-26 22:25 | US ---
EXAMINATION TYPE: US pelvis complete transvag DATE OF EXAM: 09/26/2024 COMPARISON: NONE CLINICAL INDICATION: Female, 24 years old with history of 9 days PP, vaginal bleeding/clots today; pt is 9 days PP TECHNIQUE: Transvaginal (TV). Doppler imaging: Color Doppler Images were obtained. Spectral doppler images were obtained., limited due to ovary position FINDINGS: EXAM MEASUREMENTS: Uterus: 12.9x7.7x9.6 cm Endometrial Stripe: 2.7 cm Right Ovary: 3.8x1.9x1.9 cm Left Ovary: 2.4x2.0x1.7 cm limited exam due to pt body habitus & overlying bowel 1. Uterus: Anteverted Anechoic area seen within Cx: 2.3x0.8x2.3cm 2. Endometrium: Thickened, Heterogenous 3. Right Ovary: slightly obscured 4. Left Ovary: slightly obscured by overlying bowel, spectral doppler limited due to ovary position Spectral, color and waveform doppler imaging shows good arterial and venous flow within the ovaries ; there is no evidence for ovarian torsion. 5. Bilateral Adnexa: wnl 6. Posterior cul-de-sac: wnl IMPRESSION: Heterogenous endometrium likely representing blood products.. No internal vascularity to suggest retained products conception at this time. Clinical correlation and continued follow-up recom mended. [facility], , 09/26/2024 10:23 PM
[2024-09-26 23:46] LABS: Appearance,Urine Cloudy (Clear); Bacteria,Urine Rare /hpf; Bilirubin,Urine Negative (Negative); Blood,Urine Large (Negative); Color,Urine Light Red; Glucose,Urine (UA) Negative (Negative); Ketones,Urine Negative (Negative); Leukocyte Esterase,Urine Moderate (Negative); Nitrite,Urine Negative (Negative); Protein,Urine 1+ (Negative); RBC,Urine >182 /hpf (0-5); Specific Gravity,Urine 1.014 (1.001-1.035); Urobilinogen,Urine <2.0 mg/dL (<2.0); WBC,Urine 37 /hpf (0-5)
[2024-09-27 00:28] VITALS: BP 111/57; PULSE 87; TEMP 97.8
== END 2024-09-27 00:28 | disposition home or self-care (01) ==
LOC: EC 20:50
DX: O72.1 Other immediate postpartum hemorrhage (principal)
CPT/HCPCS: 36415; 76830; 80053; 81001; 85025; 85610; 85730; 86850; 86900; 86901; 93975; 99284